=== PATIENT | male | born 1960 | race African-American/Black ===

== ENCOUNTER 2018-09-10 11:01 | Inpatient (IN) | payer OTHER ==
[2018-09-10 11:34] LABS: Hemoglobin 10.2 g/dL (14.0-18.0); Mean Corpuscular HGB CONC 34.1 g/dL (32.0-36.0); Mean Corpuscular Hemoglobin 30.4 pg (27.0-31.0); Mean Corpuscular Volume 89.1 fL (78.0-98.0); Mean Platelet Volume 6.6 fL (7.4-10.4); Platelet Count 399 thou/uL (130-400); Red Blood Cell (RBC) Count 3.36 mill/uL (4.70-6.10); White Blood Cell (WBC) Count 25.6 thou/uL (4.8-10.8)
[2018-09-10 11:52] LABS: Band 33 % (5-11); Lymphocytes 2 % (21-51); MDiff Complete? YES; Monocytes 13 % (0-10); Neutrophil 52 % (42-75); Platelet Morphology Comment Appears Adequate
[2018-09-10 11:55] LABS: ALT (SGPT) 29 U/L (8-55); AST (SGOT) 22 U/L (5-34); Albumin 3.4 g/dL (3.5-5.0); Alkaline Phosphatase 77 U/L (40-150); Anion Gap 20 mmol/L (10-20); BUN (Urea Nitrogen) 39 mg/dL (8.4-25.7); Bilirubin, Total 0.6 mg/dL (0.2-1.2); Calc. Creatinine Clearance 0 mL/min (70-130); Calcium 9.7 mg/dL (7.8-10.44); Carbon Dioxide 24 mmol/L (22-29); Chloride 94 mmol/L (98-107); Estimated GFR-MDRD 27; Glucose 178 mg/dL (70-105); Potassium 3.7 mmol/L (3.5-5.1); Protein, Total 7.4 g/dL (6.0-8.3); Sodium 134 mmol/L (136-145)
[2018-09-10] MEDS ORDERED: Piperacillin/Tazobactam 3.375 GM VIAL ONE (12:26)
[2018-09-10] MEDS ORDERED: Acetaminophen 500 MG TAB ONE (12:26)
--- NOTE | 2018-09-10 12:54 | CT ---
CT ABDOMEN AND PELVIS WITHOUT CONTRAST: HISTORY: Right gluteal abscess. FINDINGS: Absence of IV and oral contrast reduces the sensitivity of exam, particularly for evaluation of solid organs involved. The lung bases are unremarkable. No calcified gallstones are seen. No free air or free fluids noted in the abdomen or pelvis. There is an 18 mm cyst in the spleen. No calculi are seen in the kidneys, ureters, or the urinary bladder. No hydroureteral nephrosis is s een on either side. There is no evidence of aneurysmal dilatation of the abdominal aorta. There are degenerative changes in the spine. There is a soft tissue mass-like density in the posteromedial aspect of the right gluteal fat. This does not have a cystic appearance. No air is seen within this mass-like density. Absence of IV cont rast makes it difficult to evaluate for peripheral loculation/enhancement. There is inflammatory jeremy nge in the right gluteal fat. IMPRESSION: 1. Right gluteal mass, likely phlegmonous change (abscess not excluded). 2. Cellulitis in the right gluteal region. POS: TPC
[2018-09-10] MEDS ORDERED: Lidocaine 1% w/Epinephrine 1:100K 20 ML VIAL ONE (13:54)
[2018-09-10 17:02] LABS: Bilirubin Negative (Negative); Blood, Urine Moderate (Negative); Clarity CLEAR (Clear); Glucose, Urine (Dipstick) 100 mg/dL (Negative); Leukocyte Negative (Negative); Nitrite Negative (Negative); Protein, Urine (Dipstick) 100 mg/dL (Neg-Trace); Specific Gravity, Urine 1.017 (1.002-1.036)
[2018-09-10 17:04] LABS: Bacteria/HPF None Seen HPF (None Seen); Hyaline Casts/LPF 4-6 HYALINE CAST LPF (0-3 Hyaline); Pathc Cast-AUWi Flag 1.36 (0-2.49); Squamous Epithelial 0-3 HPF (0-3); WBC/HPF 0-3 HPF (0-3)
[2018-09-10 17:08] LABS: Yeast-AUWi Flag 208.6 (0-25.0)
[2018-09-10 17:25] LABS: Crystals/HPF 1+ AMORPH URATES HPF (Negative)
[2018-09-10 17:26] LABS: Yeast-All Forms None Seen HPF (None Seen)
[2018-09-10] MEDS ORDERED: HYDROcodone/Acetaminophen 5/325 mg Tablet PO PRN ×2 (17:30)
[2018-09-10] MEDS ORDERED: Dextrose 50% Abboject 50 ML SYRINGE SLOW IVP PRN (17:36)
[2018-09-10] MEDS ORDERED: Dextrose 5% in Water 1,000 ML IV PRN (17:36)
[2018-09-10 17:43] VITALS: BMI 25.6
[2018-09-10] MEDS: HumaLOG 300 UNITS/3 ML VIAL SC PRN (18:21)
[2018-09-10 18:46] LABS: INR-International Normal Ratio 2.6; Prothrombin Time 28.2 SEC (12.0-14.7)
[2018-09-10] MEDS: Acetaminophen 325 MG TAB PO PRN (19:45)
[2018-09-10] MEDS: glipiZIDE 10 MG TAB PO SCH (19:46)
[2018-09-10] MEDS: Metoprolol Tartrate 25 MG TAB PO SCH (19:46)
[2018-09-10] MEDS: Atorvastatin Calcium 40 MG TAB PO SCH (19:46)
--- NOTE | 2018-09-10 23:53 | HP ---
CHIEF COMPLAINT: Buttock abscess. HISTORY OF PRESENT ILLNESS: This patient is a 58-year-old male who is an inmate at the [facility]. The patient presented via the emergency department with an abscess on the right buttock and left wrist. The patient reported that for the past 6-7 days he has had worsening of this abscess. He had a small superficial irritation that subsequently grew into a larger abscess. He was subsequently febrile with chills. The patient was seen in the emergency department where he had a large right buttock abscess identified with incision and drainage performed there. The patient is already feeling significantly better at this point. The wounds were packed as there was a second lesion on the buttock area as well, which is smaller. He continues to have the lesion on the left wrist. The patient denies ever having had problems like these before. Denies any history of MRSA infection prior. REVIEW OF SYSTEMS: The patient has reported some dizziness and lightheadedness. He feels generalized malaise as part of the infection and some slight congestion of his ears. PAST MEDICAL HISTORY: Atrial fibrillation, diabetes mellitus, hyperlipidemia, chronic kidney disease. Unclear what stage he is at for right now. He also reports a history of a perforated bowel, but no surgery. PAST SURGICAL HISTORY: None. FAMILY HISTORY: Both parents had diabetes mellitus. SOCIAL HISTORY: The patient is a nonsmoker, nondrinker, and nondrug user. He is . Full code. ALLERGIES: PEANUTS. CURRENT MEDICATIONS: 1. Atorvastatin 80 mg at bedtime. 2. Glipizide 10 mg b.i.d. 3. Hydrochlorothiazide 25 mg daily. 4. Lisinopril 5 mg p.o. daily. 5. Metformin 1000 mg p.o. b.i.d. 6. Metoprolol 25 mg b.i.d. 7. Warfarin 7.5 mg p.o. q.week. It looks like he takes 3 tablets a day, so he takes 7.5 a day with an additional 2.5 on . PHYSICAL EXAMINATION: Initial vitals present in the emergency room, BP 124/82, pulse 133 and regular, respirations 16, temperature 100.7, O2 saturation was 99% on room air. Discharge. Vitals from the ER, BP 119/61, pulse 83, respirations 18, temperature 98.8, O2 saturation 98% on room air. GENERAL APPEARANCE: Age-appropriate male, in no distress he is awake, alert, oriented, pleasant, very cooperative. HEENT: PERRL, no OP lesions. NECK: Supple and symmetric. No lymphadenopathy. No supraclavicular lymphadenopathy. HEART: Regular rate and rhythm without murmurs, gallops, or rubs. LUNGS: Clear to auscultation bilaterally with no wheezes or rales. ABDOMEN: Soft, nontender, and nondistended. EXTREMITIES: No cyanosis, clubbing, or edema. SKIN: Reveals 2 areas on the right buttock, which have had incision and drainage with some packing and a clear Opsite type dressing over the top. These areas are nontender, but still numb from the incision and drainage. He also has an additional lesion on the left wrist on the flexor surface overlying the radial head area that is about 2 x 3 cm. It is firm, slightly fluctuant, but not significantly inflamed or erythematous. LABORATORY DATA: White count 25.6, hemoglobin 10.2, platelets 399, 52 neutrophils, 33% bands, 2% lymphocytes, 13 monos. Sodium 134, potassium 3.7, chloride 94, CO2 24, BUN 39, creatinine is 2.44, glucose 178, albumin 3.4. Urinalysis trace protein, trace glucose, moderate blood, trace ketones. IMAGING: CT abdomen and pelvis only revealed the abscess of the buttock. IMPRESSION AND PLAN: 1. Right buttock abscess, status post incision and drainage in the emergency department. The patient did have sepsis associated with this given the white count of 25.6 and the tachycardia at 133, status post abscess and fluid resuscitation. His heart rate is now better. He received vancomycin and Zosyn. We will continue with those and follow up on the cultures from the original incision and drainage. We will consult Wound Care. We will also ask Surgery to see just to ensure this has been adequately debrided. 2. Left wrist abscess likely same bacterial infection as the buttock abscess. This will likely need drainage as well, although it does not appear to be actively inflamed as the buttock area did. We will consult surgery for that and continue with the vancomycin and Zosyn. 3. Diabetes mellitus. Continue with the glipizide, metformin, Accu-Cheks and sliding scale. 4. Hypertension continue with hydrochlorothiazide and lisinopril. 5. History of atrial fibrillation. Continue metoprolol and warfarin. The patient is in sinus rhythm at this particular moment. 6. Hyperlipidemia, continue atorvastatin. Job ID: [id number]
[2018-09-11 06:10] LABS: INR-International Normal Ratio 2.6; Prothrombin Time 27.8 SEC (12.0-14.7)
[2018-09-11 06:29] LABS: Anion Gap 13 mmol/L (10-20); BUN (Urea Nitrogen) 38 mg/dL (8.4-25.7); Calc. Creatinine Clearance 44 mL/min (70-130); Calcium 8.7 mg/dL (7.8-10.44); Carbon Dioxide 25 mmol/L (22-29); Chloride 102 mmol/L (98-107); Estimated GFR-MDRD 40; Glucose 158 mg/dL (70-105); Potassium 3.1 mmol/L (3.5-5.1); Sodium 137 mmol/L (136-145)
[2018-09-11 06:42] LABS: Hemoglobin 8.8 g/dL (14.0-18.0); Mean Corpuscular HGB CONC 33.6 g/dL (32.0-36.0); Mean Corpuscular Hemoglobin 30.1 pg (27.0-31.0); Mean Corpuscular Volume 89.3 fL (78.0-98.0); Mean Platelet Volume 6.8 fL (7.4-10.4); Platelet Count 372 thou/uL (130-400); Red Blood Cell (RBC) Count 2.93 mill/uL (4.70-6.10); White Blood Cell (WBC) Count 22.5 thou/uL (4.8-10.8)
[2018-09-11 07:02] LABS: Band 3 % (5-11); Hypochromia SLIGHT = 6-15 cells (100X) (0-5/hpf); Lymphocytes 4 % (21-51); MDiff Complete? YES; Monocytes 7 % (0-10); Neutrophil 86 % (42-75); Platelet Morphology Comment Appears Adequate
--- NOTE | 2018-09-11 07:58 | PDOC.PN ---
- Subjective Encounter Start Date: 09/11/18 Encounter Start Time: 09:10 Subjective: Patient feeling much better after I&D in the ER. No fever overnight. -: No N/V. - Objective Resuscitation Status - Order Detail: 09/10/18 17:30 Resuscitation Status Routine Resuscitation Status: FULL: Full Resuscitation MAR Reviewed: Yes Vital Signs & Weight: Vital Signs (12 hours) Temp Pulse Resp BP Pulse Ox 09/11/18 03:35 99 F 70 20 111/56 L 96 09/10/18 20:00 99 Weight Weight 178 lb 12.8 oz I&O: 09/10/18 09/11/18 09/12/18 06:59 06:59 06:59 Intake Total 200 Output Total 450 Balance -250 Result Diagrams: 09/11/18 05:06 09/11/18 05:06 Additional Labs: Accuchecks 09/11/18 09/10/18 09/10/18 05:23 20:24 17:45 POC Glucose 195 H 302 H 276 H Phys Exam - Physical Examination Constitutional: NAD HEENT: moist MMs Respiratory: no wheezing, no rales, no rhonchi Cardiovascular: RRR, no significant murmur Gastrointestinal: soft, non-tender, positive bowel sounds Musculoskeletal: no edema Neurological: non-focal, moves all 4 limbs Psychiatric: normal affect, A&O x 3 Deviation from normal: abscess on right buttock packed, second spontaneously draining, left wrist -: with fluctuant fluid collection, starting to get a head Dx/Plan (1) Sepsis Code(s): A41.9 - SEPSIS, UNSPECIFIED ORGANISM Status: Acute Comment: leukocytosis with tachycardia, improving with IV abx and fluids (2) Abscess of buttock, right Code(s): L02.31 - CUTANEOUS ABSCESS OF BUTTOCK Status: Acute Comment: s/p I& D in the ER, culture pending, on Vanc and Zosyn since 09/10/2018 (3) Abscess of wrist Code(s): L02.419 - CUTANEOUS ABSCESS OF LIMB, UNSPECIFIED Status: Acute Comment: left, may need I&D, surgery consulted (4) Diabetes mellitus type 2 in nonobese Code(s): E11.9 - TYPE 2 DIABETES MELLITUS WITHOUT COMPLICATIONS Status: Chronic Comment: on oral hypoglycemics, FSBS AC HS, ISS (5) Hypertension Code(s): I10 - ESSENTIAL (PRIMARY) HYPERTENSION Status: Chronic Qualifiers: Hypertension type: essential hypertension Qualified Code(s): I10 - Essential (primary) hypertension Comment: resume home medications (6) Chronic kidney disease Code(s): N18.9 - CHRONIC KIDNEY DISEASE, UNSPECIFIED Status: Chronic Comment : uncertain stage, giving IV fluids (7) Paroxysmal atrial fibrillation Code(s): I48.0 - PAROXYSMAL ATRIAL FIBRILLATION Status: Chronic Comment: in NSR now, on metoprolol and Warfarin (8) Hyperlipidemia Code(s): E78.5 - HYPERLIPIDEMIA, UNSPECIFIED Status: Chronic Comment: on Atorvastatin - Plan cont current plan of care, continue antibiotics * . - Discharge Day Encounter end time: 09:30
[2018-09-11] MEDS ORDERED: Vancomycin HCl 1 GM in Premix Bag 1 BAG IVPB SCH (09:00)
[2018-09-11] MEDS: Lisinopril 5 MG TAB PO SCH (09:08)
[2018-09-11] MEDS: glipiZIDE 10 MG TAB PO SCH ×2 (09:09→20:17)
[2018-09-11] MEDS: Hydrochlorothiazide 25 MG TAB PO SCH (09:09)
[2018-09-11] MEDS: metFORMIN 500 MG TAB PO SCH ×2 (09:09→16:30)
[2018-09-11] MEDS: Metoprolol Tartrate 25 MG TAB PO SCH ×2 (09:11→20:17)
[2018-09-11] MEDS: Enoxaparin Sodium 40 MG/0.4 ML SYRINGE SC SCH (09:12)
[2018-09-11] MEDS: Sodium Chloride 0.9% 1,000 ML IV SCH (09:28)
[2018-09-11] MEDS: Vancomycin HCl 1.25 GM in Sodium Chloride 0.9% 250 ML 250 ML IVPB SCH (09:42)
[2018-09-11] MEDS: HumaLOG 300 UNITS/3 ML VIAL SC PRN (11:59)
[2018-09-11] MEDS: Piperacillin/Tazobactam 3.375 GM in Sodium Chloride 0.9% 100 ML IVPB SCH ×2 (12:00→16:31)
[2018-09-11] MEDS ORDERED: Bupivacaine HCl 0.5%/Epinephrine 1:200,000/PF 30 ml Vial IJ SCH (16:30)
[2018-09-11] MEDS ORDERED: Lidocaine 1% w/Epinephrine 1:200K 30 ML VIAL NERVE BLCK SCH (16:30)
[2018-09-11] MEDS ORDERED: Warfarin Sodium 7.5 MG TAB PO SCH (17:00)
[2018-09-11] MEDS: Atorvastatin Calcium 40 MG TAB PO SCH (20:17)
[2018-09-12] MEDS: Piperacillin/Tazobactam 3.375 GM in Sodium Chloride 0.9% 100 ML IVPB SCH ×5 (00:37→22:28)
[2018-09-12] MEDS: Sodium Chloride 0.9% 1,000 ML IV SCH (00:38)
[2018-09-12 05:37] LABS: INR-International Normal Ratio 2.2; Prothrombin Time 24.7 SEC (12.0-14.7)
[2018-09-12 05:56] LABS: Band 22 % (5-11); Eosinophils 2 % (0-10); Hemoglobin 8.1 g/dL (14.0-18.0); Lymphocytes 4 % (21-51); MDiff Complete? YES; Mean Corpuscular HGB CONC 32.7 g/dL (32.0-36.0); Mean Corpuscular Hemoglobin 29.7 pg (27.0-31.0); Mean Corpuscular Volume 90.7 fL (78.0-98.0); Mean Platelet Volume 6.6 fL (7.4-10.4); Metamyelocyte 1 % (0-0); Monocytes 7 % (0-10); Neutrophil 64 % (42-75); Platelet Count 389 thou/uL (130-400); Platelet Morphology Comment Appears Adequate; Red Blood Cell (RBC) Count 2.73 mill/uL (4.70-6.10); White Blood Cell (WBC) Count 20.5 thou/uL (4.8-10.8)
[2018-09-12 05:59] LABS: Anion Gap 12 mmol/L (10-20); BUN (Urea Nitrogen) 35 mg/dL (8.4-25.7); Calc. Creatinine Clearance 43 mL/min (70-130); Calcium 8.4 mg/dL (7.8-10.44); Carbon Dioxide 26 mmol/L (22-29); Chloride 103 mmol/L (98-107); Estimated GFR-MDRD 40; Glucose 113 mg/dL (70-105); Potassium 3.2 mmol/L (3.5-5.1); Sodium 138 mmol/L (136-145)
--- NOTE | 2018-09-12 07:29 | PDOC.PN ---
- Subjective Encounter Start Date: 09/12/18 Encounter Start Time: 09:40 Subjective: Patient reports spontaneous rupture of abscess on left wrist, now draining. -: Buttocks not hurting too bad today. No fever or other symptoms. - Objective Resuscitation Status - Order Detail: 09/10/18 17:30 Resuscitation Status Routine Resuscitation Status: FULL: Full Resuscitation MAR Reviewed: Yes Vital Signs & Weight: Vital Signs (12 hours) Temp Pulse Resp BP BP Pulse Ox 09/12/18 04:00 98.9 F 72 18 111/56 L 98 09/11/18 23:50 99.5 F 82 18 120/57 L 99 09/11/18 20:13 94 L 09/11/18 19:42 100.2 F H 78 14 111/56 L 94 L Weight Weight 178 lb 12.8 oz I&O: 09/11/18 09/12/18 09/13/18 06:59 06:59 06:59 Intake Total 200 3834 Output Total 450 1850 Balance -250 1983 Result Diagrams: 09/12/18 04:52 09/12/18 04:52 Additional Labs: Accuchecks 09/11/18 09/11/18 09/11/18 20:31 16:03 10:56 POC Glucose 128 H 178 H 384 H Phys Exam - Physical Examination Constitutional: NAD HEENT: moist MMs Respiratory: no wheezing, no rales, no rhonchi Cardiovascular: RRR, no significant murmur Gastrointestinal: soft, non-tender, positive bowel sounds Neurological: non-focal, moves all 4 limbs left wrist with bandage in place c/d/i Psychiatric: normal affect, A&O x 3 Dx/Plan (1) Sepsis Code(s): A41.9 - SEPSIS, UNSPECIFIED ORGANISM Status: Acute Qualifiers: Sepsis type: methicillin resistant Staphylococcus aureus Qualified Code(s) : A41.02 - Sepsis due to Methicillin resistant Staphylococcus aureus Comment: leukocytosis with tachycardia, improving with IV abx and fluids (2) Abscess of buttock, right Code(s): L02.31 - CUTANEOUS ABSCESS OF BUTTOCK Status: Acute Comment: s/p I& D in the ER, culture growing MRSA sens to Clinda and Doxy, on Vanc and Zosyn since 09/10/2018 (3) Abscess of wrist Code(s): L02.419 - CUTANEOUS ABSCESS OF LIMB, UNSPECIFIED Status: Acute Comment: left, may need I&D, surgery consulted (4) Diabetes mellitus type 2 in nonobese Code(s): E11.9 - TYPE 2 DIABETES MELLITUS WITHOUT COMPLICATIONS Status: Chronic Comment: on oral hypoglycemics, FSBS AC HS, ISS (5) Hypertension Code(s): I10 - ESSENTIAL (PRIMARY) HYPERTENSION Status: Chronic Qualifiers: Hypertension type: essential hypertension Qualified Code(s): I10 - Essential (primary) hypertension Comment: resume home medications (6) Chronic kidney disease Code(s): N18.9 - CHRONIC KIDNEY DISEASE, UNSPECIFIED Status: Chronic Comment : uncertain stage, giving IV fluids (7) Paroxysmal atrial fibrillation Code(s): I48.0 - PAROXYSMAL ATRIAL FIBRILLATION Status: Chronic Comment: in NSR now, on metoprolol and Warfarin (8) Hyperlipidemia Code(s): E78.5 - HYPERLIPIDEMIA, UNSPECIFIED Status: Chronic Comment: on Atorvastatin - Plan cont current plan of care, continue antibiotics, DVT proph w/lovenox Will consider consulting Dr. Montano when he gets back in town tomorrow for -: abx recommendations going back to [facility]. * . - Discharge Day Encounter end time: 09:50
[2018-09-12] MEDS ORDERED: Potassium Chloride 20 MEQ TAB PO SCH (07:30)
[2018-09-12 08:48] LABS: Vancomycin, Trough 13.6 ug/mL
[2018-09-12] MEDS: Metoprolol Tartrate 25 MG TAB PO SCH ×2 (09:45→22:26)
[2018-09-12] MEDS: Hydrochlorothiazide 25 MG TAB PO SCH (09:45)
[2018-09-12] MEDS: glipiZIDE 10 MG TAB PO SCH ×2 (09:45→22:26)
[2018-09-12] MEDS: metFORMIN 500 MG TAB PO SCH ×2 (09:45→17:02)
[2018-09-12] MEDS: Lisinopril 5 MG TAB PO SCH (09:45)
[2018-09-12] MEDS: Enoxaparin Sodium 40 MG/0.4 ML SYRINGE SC SCH (09:46)
[2018-09-12] MEDS: Vancomycin HCl 1.5 GM in Sodium Chloride 0.9% 250 ML 300 ML IVPB SCH (09:47)
[2018-09-12] MEDS: Vancomycin HCl 1.25 GM in Sodium Chloride 0.9% 250 ML 250 ML IVPB SCH (09:48)
--- NOTE | 2018-09-12 11:18 | CON ---
DATE OF CONSULTATION: Wagner Murray is a 58-year-old black male prisoner, admitted from the emergency room for abscess in the right buttock and left wrist. The abscess of right buttock has been drained through a 3 or 4 mm incision. Cultures performed and in progress. He was admitted late yesterday evening. He is on anticoagulation, and INR is elevated, therapeutic. It has been continued since admission. PRESENT MEDICATIONS: 1. Metformin 1000 b.i.d. 2. Glipizide 10 b.i.d. 3. Metoprolol 25 b.i.d. 4. Lisinopril 5 daily. 5. Hydrochlorothiazide 25 daily. 6. Calcitriol daily. 7. Atorvastatin 80 mg p.m. 8. Coumadin 7.5 mg daily. The patient admitted to the hospitalist service. Alcohol/tobacco, none in custodial. PAST SURGICAL HISTORY: Noncontributory. PAST MEDICAL HISTORY: Atrial fibrillation, diabetes mellitus, hyperlipidemia, he has a history of chronic kidney disease. In this hospitalization, GFR is 27 to 40, BUN 39 to 38, creatinine 2.4 to 2.06. PHYSICAL EXAMINATION: VITAL SIGNS: Height 5 feet 10 inches, weight 178 pounds, 25 BMI, temperature 98.6 degrees, heart rate 76, blood pressure 119/60. HEAD, EARS, EYES, NOSE, AND THROAT: Unremarkable. LUNGS: Clear to auscultation. CARDIAC: Irregularly irregular. ABDOMEN: Soft. He has a small 3 to 4 mm stab incision in the right buttock with undermining when probing with Q-Tip. He has undermining circumferentially and has a very large abscess that needs further drainage. EXTREMITIES: He has a left wrist abscess that is fluctuant, nonpulsatile. ASSESSMENT AND PLAN: 1. Abscess, right buttock, previously drained in the emergency room, needs further drainage to facilitate wound care. We will plan incision and drainage at bedside once supplies are obtained. 2. Abscess, left wrist. Incision and drainage at bedside under local once soft supplies are gained. 3. Atrial fibrillation. 4. Anticoagulation. 5. Diabetes mellitus. 6. Hypertension. Job ID: [id number]
[2018-09-12] MEDS: Acetaminophen 325 MG TAB PO PRN (22:26)
[2018-09-12] MEDS: Atorvastatin Calcium 40 MG TAB PO SCH (22:26)
--- NOTE | 2018-09-13 01:01 | OP ---
DATE OF PROCEDURE: 09/12/2018 PREOPERATIVE DIAGNOSES: Abscess, left wrist; abscess x2, right buttocks, smaller more superior, larger more inferiorly, inadequately draining buttock abscesses in the emergency room and sepsis. POSTOPERATIVE DIAGNOSES: Abscess, left wrist; abscess x2, right buttocks, smaller more superior, larger more inferiorly, inadequately draining buttock abscesses in the emergency room and sepsis. PROCEDURES PERFORMED: Incision and drainage of left wrist abscess and incision and drainage of 2 right buttock abscesses. ANESTHESIA: 1% Xylocaine with epinephrine. DESCRIPTION OF PROCEDURE: With the patient at bedside in his room, his left wrist and right buttocks were prepared with ChloraPrep and draped in routine fashion. Local anesthetic was infiltrated into the skin and subcutaneous tissue and abscess in the left wrist was drained using a 11 blade after alcohol and ChloraPrep. Gauze dressing applied. Small amount of pus evacuated. Abscess in his right buttocks more superiorly and 1 more inferiorly were both anesthetized with local anesthetic. After ChloraPrep and both drained, the larger being the more inferior approximately 4.5 cm long, the other about 2.5 cm long. Gauze dressings applied. The patient tolerated the procedure well. Job ID: [id number]
[2018-09-13] MEDS: Sodium Chloride 0.9% 1,000 ML IV SCH ×3 (05:47→10:29)
[2018-09-13] MEDS: Piperacillin/Tazobactam 3.375 GM in Sodium Chloride 0.9% 100 ML IVPB SCH (05:52)
[2018-09-13 08:18] LABS: Anion Gap 15 mmol/L (10-20); BUN (Urea Nitrogen) 26 mg/dL (8.4-25.7); Calc. Creatinine Clearance 48 mL/min (70-130); Calcium 8.9 mg/dL (7.8-10.44); Carbon Dioxide 21 mmol/L (22-29); Chloride 107 mmol/L (98-107); Estimated GFR-MDRD 44; Glucose 69 mg/dL (70-105); Potassium 3.8 mmol/L (3.5-5.1); Sodium 139 mmol/L (136-145)
--- NOTE | 2018-09-13 08:18 | PDOC.PN ---
- Subjective Encounter Start Date: 09/13/18 Encounter Start Time: 11:30 Subjective: Patient without fever or chills. Pain improved after I&D yesterday. -: No other complaints. - Objective Resuscitation Status - Order Detail: 09/10/18 17:30 Resuscitation Status Routine Resuscitation Status: FULL: Full Resuscitation MAR Reviewed: Yes Vital Signs & Weight: Vital Signs (12 hours) Temp Pulse Resp BP Pulse Ox 09/13/18 04:08 98.7 F 62 18 125/59 L 98 09/12/18 23:41 60 134/63 09/12/18 21:00 68 16 131/60 100 Weight Admit Weight 178 lb 12.8 oz Weight 181 lb 2 oz I&O: 09/12/18 09/13/18 09/14/18 06:59 06:59 06:59 Intake Total 3834 2980 Output Total 1850 1600 Balance 1983 1380 Result Diagrams: 09/13/18 09:25 09/13/18 07:40 Additional Labs: Accuchecks 09/13/18 09/12/18 09/12/18 05:29 20:39 16:55 POC Glucose 77 113 H 105 09/12/18 09/12/18 11:36 05:51 POC Glucose 149 H 117 H Phys Exam - Physical Examination Constitutional: NAD HEENT: moist MMs Respiratory: no wheezing, no rales, no rhonchi Cardiovascular: RRR, no significant murmur Gastrointestinal: soft, positive bowel sounds left wrist and right buttock abscesses smaller, dressings c/d/i Neurological: non-focal, moves all 4 limbs Psychiatric: normal affect, A&O x 3 Dx/Plan (1) Sepsis Code(s): A41.9 - SEPSIS, UNSPECIFIED ORGANISM Status: Acute Qualifiers: Sepsis type: methicillin resistant Staphylococcus aureus Qualified Code(s) : A41.02 - Sepsis due to Methicillin resistant Staphylococcus aureus Comment: leukocytosis resolving, improving with IV abx and fluids, can d/c Zosyn , change vanc to doxy for 2 week course (2) Abscess of buttock, right Code(s): L02.31 - CUTANEOUS ABSCESS OF BUTTOCK Status: Acute Comment: s/p I& D in the ER, culture growing MRSA sens to Clinda and Doxy, on Vanc since 2018, s/p I&D by Dr. Bautista 09/12 (3) Abscess of wrist Code(s): L02.419 - CUTANEOUS ABSCESS OF LIMB, UNSPECIFIED Status: Acute Comment: left, s/p I&D (4) Diabetes mellitus type 2 in nonobese Code(s): E11.9 - TYPE 2 DIABETES MELLITUS WITHOUT COMPLICATIONS Status: Chronic Comment: on oral hypoglycemics, FSBS AC HS, ISS (5) Hypertension Code(s): I10 - ESSENTIAL (PRIMARY) HYPERTENSION Status: Chronic Qualifiers: Hypertension type: essential hypertension Qualified Code(s): I10 - Essential (primary) hypertension Comment: resume home medications (6) Chronic kidney disease Code(s): N18.9 - CHRONIC KIDNEY DISEASE, UNSPECIFIED Status: Chronic Comment : uncertain stage, giving IV fluids (7) Paroxysmal atrial fibrillation Code(s): I48.0 - PAROXYSMAL ATRIAL FIBRILLATION Status: Chronic Comment: in NSR now, on metoprolol and Warfarin (8) Hyperlipidemia Code(s): E78.5 - HYPERLIPIDEMIA, UNSPECIFIED Status: Chronic Comment: on Atorvastatin - Plan cont current plan of care, continue antibiotics WBC much improved, abscesses drained successfully and cleared for -: d/c by surgery, will give 2 week course of doxy for the MRSA -: D/C back to senior living. * . - Discharge Day Encounter end time: 12:00
[2018-09-13] MEDS: Metoprolol Tartrate 25 MG TAB PO SCH (08:32)
[2018-09-13] MEDS: metFORMIN 500 MG TAB PO SCH (08:32)
[2018-09-13] MEDS: glipiZIDE 10 MG TAB PO SCH (08:32)
[2018-09-13] MEDS: Lisinopril 5 MG TAB PO SCH (08:32)
[2018-09-13] MEDS: Hydrochlorothiazide 25 MG TAB PO SCH (08:32)
[2018-09-13] MEDS: Enoxaparin Sodium 40 MG/0.4 ML SYRINGE SC SCH (08:32)
[2018-09-13 09:53] LABS: Prothrombin Time 22.5 SEC (12.0-14.7)
[2018-09-13 10:05] LABS: Hemoglobin 8.3 g/dL (14.0-18.0); Mean Corpuscular HGB CONC 35.3 g/dL (32.0-36.0); Mean Corpuscular Hemoglobin 31.7 pg (27.0-31.0); Mean Corpuscular Volume 89.7 fL (78.0-98.0); Mean Platelet Volume 6.9 fL (7.4-10.4); Platelet Count 410 thou/uL (130-400); RBC Distribution Width 12.1 % (11.5-14.5); Red Blood Cell (RBC) Count 2.62 mill/uL (4.70-6.10); White Blood Cell (WBC) Count 16.7 thou/uL (4.8-10.8)
[2018-09-13] MEDS: Vancomycin HCl 1.5 GM in Sodium Chloride 0.9% 250 ML 300 ML IVPB SCH (10:42)
[2018-09-13 11:06] LABS: Band 8 % (5-11); Lymphocytes 8 % (21-51); MDiff Complete? YES; Monocytes 5 % (0-10); Neutrophil 79 % (42-75); Platelet Morphology Comment Appears Increased; Polychromasia SLIGHT = 2-3 cells (100X) (0-2/hpf)
[2018-09-13 11:20] VITALS: BP 144/71; TEMP 98.9
--- NOTE | 2018-09-14 01:33 | DIS ---
DATE OF ADMISSION: 09/10/2018 DATE OF DISCHARGE: 09/13/2018 PRIMARY CARE PHYSICIAN: Shelter inmate. REASON FOR ADMISSION: Buttock and wrist abscesses. DIAGNOSES AT DISCHARGE: 1. Sepsis, improved. 2. Abscess of right buttock and left wrist, status post I and D by Dr. Bautista. 3. Methicillin-resistant Staphylococcus aureus infection. 4. Diabetes mellitus type 2. 5. Acute on chronic kidney disease, improved with fluids. 6. Hypertension. 7. Paroxysmal atrial fibrillation, on warfarin. 8. Hyperlipidemia. PROCEDURES: 1. CT of the abdomen and pelvis without contrast showing right gluteal mass, likely phlegmonous change and cellulitis in the right gluteal region. 2. I and D of the right buttock and left wrist abscesses by Dr. Bautista. CONSULTATIONS: General Surgery, Dr. Bautista. PERTINENT LABORATORY DATA: Bacterial culture from right buttock abscess growing back methicillin-resistant Staph aureus, sensitive to doxycycline, but resistant to Bactrim. SUMMARY OF HOSPITAL COURSE: This is a 58-year-old male inmate who presented to the ER with an abscess on his right buttock and left wrist that is present for the last 6-7 days. No history of previous MRSA infection. He had an initial I and D in the emergency room, was found to be septic with tachycardia and significantly elevated white blood cell count of 25,000. He was admitted to the hospital, had IV Zosyn and vancomycin. His abscess eventually grew out MRSA and he was switched over to just vancomycin. The patient still had significant fluctuant fluid in his right buttock and then he had a left wrist abscess, so Michele was consulted. Dr. Bautista did I and D both of those with good result. On the day of discharge, the patient's white blood cell count was down to 16,000. He had no fevers and decreased pain and no tachycardia and was stable for discharge. Of note, he did have some mild worsening of his chronic renal failure on admission that resolved with IV fluids. He also has blood sugars were controlled throughout his hospitalization. He was continued on his warfarin with therapeutic INR. DISCHARGE MANAGEMENT: Discharged back to the [facility]. ACTIVITY: As tolerated. DIET: Diabetic, low-sodium diet. THERAPIES: Wound care with daily sterile packing changes to the left wrist and right buttock abscess cavities until well healed. DISCHARGE MEDICATIONS: 1. Doxycycline 100 mg twice a day for 14 days. 2. Acetaminophen as needed. 3. Atorvastatin 80 mg at night. 4. Calcitriol 0.25 mcg daily. 5. Glipizide 10 mg twice a day. 6. Hydrochlorothiazide 25 mg daily. 7. Lisinopril 5 mg daily. 8. Metformin 1000 mg twice a day. 9. Metoprolol tartrate 25 mg twice a day. 10. Warfarin 7.5 mg daily with an extra 2.5 mg on . TIME SPENT: Arranging the details of this discharge took 32 minutes. Job ID: [id number]
== END 2018-09-13 14:45 | DRG 872 ==
LOC: ERS 11:01 → ERHOLD 14:50 → 2NO 17:32
PROVIDERS: ADMIT Internal Medicine; ATTEND Internal Medicine
PROC: 0H98XZZ Drainage of Buttock Skin, External Approach (ICD-10-PCS; principal; 2018-09-10)
PROC: 0J9H3ZZ Drainage of Left Lower Arm Subcutaneous Tissue and Fascia, Percutaneous Approach (ICD-10-PCS; 2018-09-12)
PROC: 0H98XZZ Drainage of Buttock Skin, External Approach (ICD-10-PCS; 2018-09-12)
DX: A41.02 Sepsis due to Methicillin resistant Staphylococcus aureus (principal); L02.31 Cutaneous abscess of buttock; L02.414 Cutaneous abscess of left upper limb; E78.5 Hyperlipidemia, unspecified; E11.22 Type 2 diabetes mellitus with diabetic chronic kidney disease; I12.9 Hypertensive chronic kidney disease with stage 1 through stage 4 chronic kidney disease, or unspecified chronic kidney disease; I48.0 Paroxysmal atrial fibrillation; N18.9 Chronic kidney disease, unspecified; Z91.010 Allergy to peanuts; Z79.01 Long term (current) use of anticoagulants; Z79.84 Long term (current) use of oral hypoglycemic drugs
CPT/HCPCS: 36415; 36416; 74176; 80048; 80053; 80202; 81003; 81015; 83605; 85025; 85610; 87040; 87070; 87077; 87186; 87205; 93005; J0670; J1650; J2001; J2543; J3370; J3490; J7050